=== PATIENT | female | born 1965 | race Caucasian/White ===

== ENCOUNTER → 2024-10-17 | Outpatient (CLI) | payer BC, SELFPAY ==
[2024-10-17 10:20] LABS: Basophils # (Auto) 0.1 Thou/mm3 (0.0-0.2); Basophils % (Auto) 1 % (0-2.5); Eosinophils # (Auto) 0.2 Thou/mm3 (0.0-0.5); Eosinophils % (Auto) 2 % (0-10); Immature Granulocytes % (Auto) 0 % (0-0); Immature Granulocytes Auto 0.02 Thou/mm3 (0.00-0.00); Lymphocytes # (Auto) 3.2 Thou/mm3 (1.0-4.8); Lymphocytes % (Auto) 34 % (10-50); Mean Corpuscular HGB Conc 33.3 g/dl (31.0-37.0); Mean Corpuscular Hemoglobin 30.2 pg (25.0-35.0); Mean Corpuscular Volume 91 fL (80-100); Monocytes # (Auto) 0.6 Thou/mm3 (0.0-0.8); Monocytes % (Auto) 6 % (0-12); Neutrophils # (Auto) 5.3 Thou/mm3 (1.8-7.7); Neutrophils % (Auto) 57 % (37-80); Nucleated Red Blood Cell % 0 /100 WBC (0); Platelet Count 245 Thou/mm3 (140-440); RDW Standard Deviation 45.1 fL (36.4-46.3); Red Blood Count 4.64 Miln/mm3 (4.00-5.20); White Blood Count 9.3 Thou/mm3 (3.6-11.0)
[2024-10-17 10:36] LABS: Sed Rate (ESR) 12 mm/hr (0-30)
[2024-10-17 10:41] LABS: Free T4 (Free Thyroxine) 1.29 ng/dL (0.89-1.76); Thyroid Stimulating Hormone 1.49 uIU/mL (0.55-4.78)
[2024-10-17 10:49] LABS: Glucose Estimated Average 103 mg/dL (80-131); Hemoglobin A1C 5.2 % Hgb (4.8-6.0)
[2024-10-23 06:52] LABS: ANA Screen, IFA NEGATIVE (NEGATIVE)
== END | disposition home or self-care (01) ==
LOC: COPL 09:23
PROVIDERS: PCP Family Medicine; Referring Provider Family Medicine; Visit Provider Family Medicine
DX: E03.3 Postinfectious hypothyroidism (principal); I25.10 Atherosclerotic heart disease of native coronary artery without angina pectoris; E11.65 Type 2 diabetes mellitus with hyperglycemia
CPT/HCPCS: 36415; 83036; 84439; 84443; 85025; 85652; 86038; 86901

== ENCOUNTER → 2024-10-25 | Outpatient (CLI) | payer BC, SELFPAY ==
--- NOTE | 2024-10-25 14:30 | XR_ITS ---
Examination: CT chest, without intravenous contrast. Sagittal and coronal 2-D reconstructions. Exam date and time: October 25, 2024 1441 hours INDICATIONS: Nicotine dependence, smoking history 25 years, 60 pound weight loss in the last one year COMPARISON: August 07, 2022 CTDI:vol (mGy) 8.50 DLP: (mGycm) 322 Technique: Multiple 3.0 mm axial sections of the chest to been obtained. Bone and lung density settings are obtained. Sagittal and coronal 2-D reconstructions have been obtained. Low dose protocols were performed. One or more of the following dose reduction techniques were used; automated exposure control, adjustment of the mA and/or KV according to patient size, use of iterative reconstruction technique. Findings: No aneurysmal dilatation thoracic aorta Pulmonary artery segments are not enlarged No paratracheal tracheobronchial or bronchopulmonary adenopathy No pneumonia, pulmonary edema, pleural disease or pulmonary nodules No visualized liver or splenic lesion 1 mm posterior left renal calculus Significant bilateral renal parenchymal scar formation Dense bilateral renal renal pyramids Aorta normal size IMPRESSION: No mediastinal lymphadenopathy No pneumonia, pulmonary edema, pleural disease or pulmonary nodules 1 mm nonobstructing left renal calculus
== END | disposition home or self-care (01) ==
LOC: CCTX 14:12
PROVIDERS: PCP Family Medicine; Referring Provider Family Medicine; Visit Provider Family Medicine
DX: N20.0 Calculus of kidney (principal)
CPT/HCPCS: 71250

== ENCOUNTER 2025-03-08 11:55 | Day surgery (SDC) | payer BC, SELFPAY ==
[2025-03-08] VITALS (11 sets, daily range): BP systolic 121–141; BP diastolic 53–85; PULSE 52–64; RESP 16–24; TEMP 36.3–36.7; O2SAT 96–99; BMI 21.4
[2025-03-08] MEDS: LIDOCAINE JELLY 2% 5 ML TUBE TOP (13:55)
[2025-03-08] MEDS: SODIUM CHLORIDE 0.9% 500 ML 500 ML 20 ML IV (13:55)
[2025-03-08] MEDS: fentaNYL CIT INJ 50 mCg/ML AMP 2ML (ASD USE ONLY) IVP (14:00)
[2025-03-08] MEDS: MIDAZOLAM INJ 1 MG/ML VIAL 2 ML (ASD USE ONLY) 2 MG IVP (14:00)
== END 2025-03-08 15:20 | disposition home or self-care (01) ==
PROVIDERS: PCP Family Medicine; Referring Provider Internal Medicine Gastroenterology; Visit Provider Internal Medicine Gastroenterology
PROC: 0DBE8ZX Excision of Large Intestine, Via Natural or Artificial Opening Endoscopic, Diagnostic (ICD-10-PCS; CPT 45380; principal; 2025-03-08 13:45)
DX: K64.9 Unspecified hemorrhoids (principal); K63.5 Polyp of colon; K63.89 Other specified diseases of intestine
CPT/HCPCS: 45385; 45380; J2250; J3010; J7040; A9270

== ENCOUNTER 2025-03-22 06:35 | Day surgery (SDC) | payer BC, SELFPAY ==
[2025-03-22] VITALS (8 sets, daily range): BP systolic 121–170; BP diastolic 61–83; PULSE 47–68; RESP 15–21; TEMP 36.8; O2SAT 95–99; BMI 22.1
[2025-03-22] MEDS: fentaNYL CIT INJ 50 mCg/ML AMP 2ML (ASD USE ONLY) IVP (08:43)
[2025-03-22] MEDS: RINGERS LACTATED 1000 ML 1,000 ML 125 ML IV (08:43)
[2025-03-22] MEDS: MIDAZOLAM INJ 1 MG/ML VIAL 2 ML (ASD USE ONLY) 2 MG IVP (08:43)
[2025-03-22] MEDS: BENZOCAINE 20% (Hurricaine) SPRAY 1 DOSE TOP (08:43)
--- NOTE | 2025-03-22 09:15 | SUR.PHASEII ---
0854: Pt received for recovery. Report from Daysi FERMIN. Pt sleepy. Is arousable with eye opening the will drift back to sleep. No c/o pain, discomfort.
--- NOTE | 2025-03-22 09:56 | SUR.PHASEII ---
0910: Pt more awake, alert. VS stable. Denies pain. Sitting up tolerating po fluids with no difficulty swallowing and no n/v. 0935: Pt fully awake, oriented x3. VS stable. Denies pain. Assisted to restroom. Ambulation steady. Pt and stated understanding of discharge instructions. Pt discharged from [facility] in stable condition.
== END 2025-03-22 09:35 | disposition home or self-care (01) ==
PROVIDERS: PCP Family Medicine; Referring Provider Internal Medicine Gastroenterology; Visit Provider Internal Medicine Gastroenterology
PROC: (CPT 43239; principal; 2025-03-22 07:30)
DX: K44.9 Diaphragmatic hernia without obstruction or gangrene (principal); K29.70 Gastritis, unspecified, without bleeding; Z87.891 Personal history of nicotine dependence; K29.50 Unspecified chronic gastritis without bleeding
CPT/HCPCS: 43239; J2250; J3010; J7120; A9270